=== PATIENT | female | born 1990 | race Hispanic/Latino ===

== ENCOUNTER 2021-02-04 08:02 | Emergency (ER) | payer OTHER ==
--- NOTE | 2021-02-04 08:26 | Emergency Department Report ---
ED ENT HPI - General Chief complaint: Dental/Oral Stated complaint: INFECTED TOOTH/HEADACHE Time Seen by Provider: 02/04/21 08:20 Source: patient Mode of arrival: Ambulatory Limitations: No Limitations - History of Present Illness Initial comments: 30 yo comes to ER with right lower molar pain. No abscess. No ludwigs. ABC intact. Controlling secretions. no lymphadenopathy. taking PO Pt insists she is trying to get a dentist to see her but states she has not been able to. She has used OTC motrin and tylenol at home with no relief from pain. MD complaint: tooth pain -: Gradual, week(s) Severity: moderate Quality: stabbing Consistency: constant Improves with: none Context- Dental: history of dental caries Associated Symptoms: toothache. denies: gum swelling - Related Data Previous Rx's Medication Instructions Recorded Last Taken Type Amoxicillin [Trimox CAP] 500 mg PO BID #20 capsule 02/04/21 Unknown Rx Allergies Allergy/AdvReac Type Severity Reaction Status Date / Time methocarbamol [From Robaxin] Allergy Unknown Verified 02/04/21 08:13 Sulfa (Sulfonamide Allergy Unknown Verified 02/04/21 08:13 Antibiotics) ED Dental HPI - General Chief complaint: Dental/Oral Stated complaint: INFECTED TOOTH/HEADACHE Time Seen by Provider: 02/04/21 08:20 Source: patient Mode of arrival: Ambulatory Limitations: No Limitations - Related Data Previous Rx's Medication Instructions Recorded Last Taken Type Amoxicillin [Trimox CAP] 500 mg PO BID #20 capsule 02/04/21 Unknown Rx Allergies Allergy/AdvReac Type Severity Reaction Status Date / Time methocarbamol [From Robaxin] Allergy Unknown Verified 02/04/21 08:13 Sulfa (Sulfonamide Allergy Unknown Verified 02/04/21 08:13 Antibiotics) ED Review of Systems ROS: Stated complaint: INFECTED TOOTH/HEADACHE Other details as noted in HPI Comment: All other systems reviewed and negative ED Past Medical Hx - Past Medical History Previous Medical History?: Yes Hx Diabetes: Yes - Surgical History Past Surgical History?: No - Family History Family history: no significant - Social History Smoking Status: Never Smoker Substance Use Type: Alcohol - Medications Home Medications: Home Medications Medication Instructions Recorded Confirmed Last Taken Type Amoxicillin [Trimox CAP] 500 mg PO BID #20 capsule 02/04/21 Unknown Rx ED Physical Exam - General Limitations: No Limitations General appearance: alert, in no apparent distress - Head Head exam: Present: atraumatic, normocephalic - Eye Eye exam: Present: normal appearance - ENT ENT exam: Present: mucous membranes moist - Expanded ENT Exam Expanded Ear exam: Present: normal external inspection Mouth exam: Present: normal external inspection, tongue normal. Absent: drooling, trismus, muffled voice, tongue elevation Teeth exam: Present: dental caries 1 - Other (caries/decay) - Neck Neck exam: Present: normal inspection - Respiratory Respiratory exam: Present: normal lung sounds bilaterally. Absent: respiratory distress - Cardiovascular Cardiovascular Exam: Present: regular rate, normal rhythm. Absent: systolic murmur, diastolic murmur, rubs, gallop - GI/Abdominal GI/Abdominal exam: Present: soft, normal bowel sounds - Extremities Exam Extremities exam: Present: normal inspection - Back Exam Back exam: Present: normal inspection - Neurological Exam Neurological exam: Present: alert, oriented X3 - Psychiatric Psychiatric exam: Present: normal affect, normal mood - Skin Skin exam: Present: warm, dry, intact, normal color. Absent: rash ED Course Vital Signs 02/04/21 08:14 Temperature 97.9 F Pulse Rate 94 H Respiratory 18 Rate Blood Pressure 127/78 O2 Sat by Pulse 96 Oximetry ED Medical Decision Making - Medical Decision Making pt states she is trying to get appnt with DMD she has been given rx for amox and d/c instructions/referral to DMD. She understands what we are doing is just temporizing the situation and not fixing it. On dc exam she is ambulatory, non ill, non toxic, taking PO. dc home with dc plan of care including rx, follow up, and pain management. She verbalizes understanding. Vital Signs 02/04/21 08:14 Temperature 97.9 F Pulse Rate 94 H Respiratory 18 Rate Blood Pressure 127/78 O2 Sat by Pulse 96 Oximetry - Differential Diagnosis dental pain Critical care attestation.: If time is entered above; I have spent that time in minutes in the direct care of this critically ill patient, excluding procedure time. ED Disposition Clinical Impression: Pain, dental Disposition: 01 HOME / SELF CARE / HOMELESS Is pt being admited?: No Does the pt Need Aspirin: No Condition: Stable Instructions: Acute Pain, Adult Additional Instructions: DIET TOLERATED STAY WELL HYDRATED MOTRIN OR TYLENOL FOR PAIN MED ORDERED TODAY FOLLOW UP WITH DMD NATHALIA Prescriptions: Amoxicillin [Trimox CAP] 500 mg PO BID #20 capsule Referrals: [facility] [Outside] - 3-5 Days [facility] [Outside] - 3-5 Days Forms: Work/School Release Form(ED) Time of Disposition: 08:34
[2021-02-04 09:00] VITALS: BP 127/78
== END 2021-02-04 09:00 | disposition home or self-care (01) ==
LOC: ED 08:02
DX: K08.89 Other specified disorders of teeth and supporting structures (principal); E11.8 Type 2 diabetes mellitus with unspecified complications; Z88.2 Allergy status to sulfonamides; Z88.9 Allergy status to unspecified drugs, medicaments and biological substances
CPT/HCPCS: 99281

== ENCOUNTER 2021-05-29 18:39 | Emergency (ER) | payer OTHER | END 2021-05-29 19:30 | disposition left against medical advice (07) | LOC: ED 18:39 | DX: L02.91 Cutaneous abscess, unspecified (principal); Z53.21 Procedure and treatment not carried out due to patient leaving prior to being seen by health care provider ==

== ENCOUNTER 2021-07-07 08:19 | Emergency (ER) | payer OTHER ==
[2021-07-07] MEDS ORDERED: SODIUM CHLORIDE 0.9% 1000 ML 1,000 ML IV ONE ×2 (08:39→11:10)
--- NOTE | 2021-07-07 08:49 | Event Note ---
ED Screening Note ED Screening Note: BG > 600 TO MAIN RO DKA/HHNK This initial assessment/diagnostic orders/clinical plan/treatment(s) is/are bo bject to change based on patients health status, clinical progression and re- assessment by fellow clinical providers in the ED. Further treatment and workup at subsequent clinical providers discretion. Patient/guardian urged not to elope from the ED as their condition may be serious if not clinically assessed and managed. Initial orders include: FLUIDS WILL NEED INSULIN LABS XRAY UA
[2021-07-07 09:11] LABS: HCG Qualitative,Urine Negative (Negative)
[2021-07-07 09:20] LABS: Basophils # (Auto) 0.1 K/mm3 (0.0-0.1); Basophils % (Auto) 0.9 % (0.0-1.8); Eosinophils # (Auto) 0.5 K/mm3 (0.0-0.4); Eosinophils % (Auto) 4.8 % (0.0-4.3); Hematocrit 43.8 % (30.3-42.9); Hemoglobin 14.2 gm/dl (10.1-14.3); Lymphocytes # (Auto) 2.4 K/mm3 (1.2-5.4); Lymphocytes % (Auto) 21.6 % (13.4-35.0); Mean Corpuscular HGB Conc 32 % (30-34); Mean Corpuscular Volume 93 fl (79-97); Monocytes # (Auto) 0.6 K/mm3 (0.0-0.8); Monocytes % (Auto) 5.5 % (0.0-7.3); Red Blood Count 4.71 M/mm3 (3.65-5.03); Red Cell Distribution Width 13.1 % (13.2-15.2)
[2021-07-07 09:35] LABS: Color,Urine Straw (Yellow)
[2021-07-07 09:41] LABS: Albumin 3.7 g/dL (3.9-5); Calcium 9.1 mg/dL (8.4-10.2)
[2021-07-07 09:42] LABS: Blood,Urine Moderate (Negative); Urobilinogen,Urine < 0.2 mg/dL (<2.0)
[2021-07-07 09:43] LABS: RBC,Urine < 1.0 /HPF (0.0-6.0); WBC,Urine < 1.0 /HPF (0.0-6.0)
[2021-07-07] MEDS ORDERED: cefTRIAXone/NS 1 GM/50 ML 1 GM/50 ML BAG IV ONE (09:44)
[2021-07-07 09:48] LABS: Platelet Count 117 K/mm3 (140-440)
[2021-07-07] MEDS ORDERED: INSULIN REGULAR, HUMAN 100 UNITS/1 ML IV ONE (10:16)
--- NOTE | 2021-07-07 10:30 | XRay Report ---
CHEST 2 VIEWS INDICATION / CLINICAL INFORMATION: Lightheadedness/Dizziness. COMPARISON: None available. FINDINGS: SUPPORT DEVICES: None. HEART / MEDIASTINUM: The heart size and pulmonary vasculature are normal. The aorta is normal in michael aaron. LUNGS / PLEURA: No significant pulmonary or pleural abnormality. No pneumothorax. ADDITIONAL FINDINGS: There are old healed fractures of the left eighth and ninth ribs posteriorly. IMPRESSION: No acute findings. Signer Name: Willis Caballero MD Signed: 07/07/2021 10:26 AM Workstation Name: [id number]
--- NOTE | 2021-07-07 15:37 | Emergency Department Report ---
ED General Adult HPI - General Chief complaint: Back Pain/Injury Stated complaint: BACK PAIN Time Seen by Provider: 07/07/21 08:48 Source: patient Mode of arrival: Ambulatory Limitations: No Limitations - History of Present Illness Initial comments: Patient is 31 years old female with history of diabetes on Metformin. Patient presented to the ER complaining of back pain. Patient stated that symptoms started for 2 to 3 days. Patient stated that she was told before that she had chronic kidney disease. Patient denied any nausea or vomiting. Patient found to have a blood glucose of more than 600. - Related Data Previous Rx's Medication Instructions Recorded Last Taken Type Amoxicillin [Trimox CAP] 500 mg PO BID #20 capsule 02/04/21 Unknown Rx Allergies Allergy/AdvReac Type Severity Reaction Status Date / Time methocarbamol [From Robaxin] Allergy Unknown Verified 02/04/21 08:13 Sulfa (Sulfonamide Allergy Unknown Verified 02/04/21 08:13 Antibiotics) ED Review of Systems ROS: Stated complaint: BACK PAIN Other details as noted in HPI Comment: All other systems reviewed and negative Constitutional: denies: chills, fever Respiratory: denies: cough, shortness of breath, SOB with exertion Cardiovascular: denies: chest pain, palpitations Gastrointestinal: denies: abdominal pain, nausea, vomiting, diarrhea, constipation, hematemesis, hematochezia Genitourinary: denies: urgency, dysuria, frequency, hematuria, discharge Musculoskeletal: back pain ED Past Medical Hx - Past Medical History Hx Diabetes: Yes - Surgical History Past Surgical History?: Yes - Social History Smoking Status: Never Smoker Substance Use Type: Alcohol - Medications Home Medications: Home Medications Medication Instructions Recorded Confirmed Last Taken Type Amoxicillin [Trimox CAP] 500 mg PO BID #20 capsule 02/04/21 Unknown Rx ED Physical Exam - General Limitations: No Limitations General appearance: alert, in no apparent distress - Head Head exam: Present: atraumatic, normocephalic, normal inspection - ENT ENT exam: Present: normal exam, normal orophraynx, mucous membranes moist - Neck Neck exam: Present: normal inspection - Respiratory Respiratory exam: Present: normal lung sounds bilaterally - Cardiovascular Cardiovascular Exam: Present: regular rate, normal rhythm, normal heart sounds - GI/Abdominal GI/Abdominal exam: Present: soft, normal bowel sounds. Absent: distended, tenderness, guarding, rebound, rigid, organomegaly, mass, bruit, pulsatile mass, hernia - Extremities Exam Extremities exam: Present: normal inspection, full ROM, normal capillary refill. Absent: calf tenderness - Back Exam Back exam: Present: normal inspection, full ROM. Absent: CVA tenderness (R), CVA tenderness (L) - Neurological Exam Neurological exam: Present: alert, oriented X3, CN II-XII intact, normal gait, reflexes normal. Absent: motor sensory deficit - Psychiatric Psychiatric exam: Present: normal mood. Absent: suicidal ideation - Skin Skin exam: Present: warm, intact, normal color ED Course Vital Signs 07/07/21 08:27 Temperature 97.9 F Pulse Rate 88 Respiratory 16 Rate Blood Pressure 134/87 [Left] O2 Sat by Pulse 98 Oximetry ED Medical Decision Making - Lab Data Result diagrams: 07/07/21 08:56 07/07/21 08:56 - Medical Decision Making Patient is 31 years old female with history of diabetes on Metformin. Patient presented to the ER complaining of back pain. Patient stated that symptoms started for 2 to 3 days. Patient stated that she was told before that she had chronic kidney disease. Patient denied any nausea or vomiting. Patient found to have a blood glucose of more than 600. Patient received 2 L of normal saline and 10 units of regular insulin with improvement of her blood glucose. Patient refused repeat blood work stating that she was stuck several times and she does not want to be stuck again. She asked to be released from the hospital. I explained to the patient thoroughly that leaving without finishing her treatment is danger on her health and can lead to permanent disability and even . Patient still wanted to be released. I advised patient to contact her primary care physician immediately and to go to another ER if her symptoms get worse. Critical care attestation.: If time is entered above; I have spent that time in minutes in the direct care of this critically ill patient, excluding procedure time. ED Disposition Clinical Impression: Acute hyperglycemia Disposition: 01 HOME / SELF CARE / HOMELESS Is pt being admited?: No Condition: Stable Instructions: Hyperglycemia, [id number] Referrals: PRIMARY CARE [Primary Care Provider] - 3-5 Days [facility] [Provider Group] - 3-5 Days
[2021-07-07 15:41] VITALS: BP 116/69
== END 2021-07-07 15:48 | disposition home or self-care (01) ==
LOC: ED 08:19
DX: E11.65 Type 2 diabetes mellitus with hyperglycemia (principal); F10.20 Alcohol dependence, uncomplicated; Z88.2 Allergy status to sulfonamides; Z88.9 Allergy status to unspecified drugs, medicaments and biological substances
CPT/HCPCS: 36415; 71046; 80053; 81001; 81025; 82010; 82140; 82805; 82962; 84484; 85025; 96361; 96365; 96375; 99284; J0696; J7030; Q0162; Q9967; J1815